=== PATIENT | male | born 1945 | race Caucasian/White ===

== ENCOUNTER → 2019-03-30 | Outpatient (CLI) | payer OTHER ==
[~2019-03-30] MED LIST: IOHEXOL 240 MG/ML 50ML VIAL. PO ONE; IOHEXOL 300 MG/ML 75 ML VIAL. IV ONE
--- NOTE | 2019-03-30 10:41 | RAD ---
EXAM: CT ABDOMEN/PELVIS WITH CONTRAST. HISTORY: Right abdominal pain. Parastomal hernia. TECHNIQUE: Computed tomography of the abdomen and pelvis was performed after the intravenous administration of iodinated contrast. One or more of the following individualized dose reduction techniques were utilized for this examination: 1. Automated exposure control. 2. Adjustment of the mA and/or kV according to patient size. 3. Use of iterative reconstruction technique. COMPARISON: None. FINDINGS: Lung windows through the visualized portions of the bases reveal mild atelectasis. Bone windows reveal no suspicious lesions. A right lateral seventh rib fracture appears subacute. There is a small hiatal hernia. The liver, spleen, adrenal glands, pancreas and gallbladder are unremarkable. A calculus in the right interpolar region measures 6 x 3 mm. A left renal cyst measures 2.0 cm. There are no pathologically enlarged lymph nodes. A [id number] midline supraumbilical hernia contains a nonobstructed loop of small bowel. Its neck measures 3.8 x 2.5 cm. This is just medial to the former ileostomy site. More superiorly, there is diastases of the rectus muscles without a full-thickness hernia. The appendix is not inflamed. The prostate is mildly enlarged for patient age. Mild diffuse bladder wall thickening may reflect chronic outlet obstruction or inflammation. A small focus of calcification is noted at the insertion of the urachal remnant at the bladder dome without a clear mass. IMPRESSION: 1. Small to moderate midline supraumbilical hernia containing a nonobstructed loop of small bowel as above. 2. Small hiatal hernia. 3. 6 x 3 mm right renal calculus. Electronically signed by: Katie Martin MD (03/30/2019 10:37 AM) [facility]
== END | disposition home or self-care (01) ==
LOC: CT 07:48
PROVIDERS: ATTEND Family Medicine
DX: K44.9 Diaphragmatic hernia without obstruction or gangrene (principal); K46.9 Unspecified abdominal hernia without obstruction or gangrene; N40.0 Benign prostatic hyperplasia without lower urinary tract symptoms; K43.5 Parastomal hernia without obstruction or gangrene; J98.11 Atelectasis; N28.1 Cyst of kidney, acquired; N20.0 Calculus of kidney
CPT/HCPCS: 74177; Q9966; Q9967